=== PATIENT | female | born 1965 | race Caucasian/White ===

== ENCOUNTER 2017-11-20 23:16 | Observation (INO) ==
[2017-11-21] MEDS ORDERED: Naloxone 0.4 MG/ML INJ IVP PRN (04:07)
--- NOTE | 2017-11-21 04:10 | Internal Med History&Physical ---
Date of Encounter: 11/21/17 Time of Encounter: 03:40 Internal Medicine - H&P: HPI Chief complaint: Seizure-like activity Admitted From: Home Plans for Post Hospital Care: Home History of present illness: Ms. Nobles is a 52 year old female Patient presented to the [facility] ER after experiencing a possible seizure. She has a history of seizures, and states she has not been feeling well for about a week. She has been increasingly lethargic, nauseated and concerned that her sugars are going too low. She checks her sugars 3 times a day, states they range anywhere from 100-150. She is not diabetic, and does not take insulin. On the day she presented to the emergency room she had just finished shopping with her daughter when she was on the way home started to feel sick and needed to vomit. They drove to her daughter's apartment, patient vomited. The daughter went up to her apartment to get her sister for assistance, and the patient had gotten out of the vehicle and fallen down into the grass outside of the apartment complex. She was found on her back, nobody witnessed her fall nobody saw whether or not she struck her head during the fall. According to the daughter the patient was "unresponsive" for a few seconds before coming around but was very confused and could not remember who she was nor who her children were. She also had urinated on herself after the episode. Denies tongue biting however. Patient's typical seizure activity includes zoning out for a few seconds but then coming to. She states she has not had a seizure for several months since she was put on Vimpat. EMS was called and found the patient in the grass and she was transported to [facility] for further evaluation. [facility] performed their assessment but requested transfer to [facility] as patient' s neurologist is affiliated here. I currently do not have records of lab work done at their facility as it did not come with the patient when she was transferred here. The ER also did not perform a head CT despite the possibility of the patient hitting her head as their CT scanner is out of service. The patient is not sure if she hit her head or not, but she is currently complaining of pain in the back of her head. Of note, patient is particularly fixated on the fact that her seizure activity is directly tied to her low sugar levels, however when she has had these events she has had a normal blood sugar reading. Patient denies dehydration, nausea. Denies chest pain and abdominal pain. Does have head pain as described above as well as 1 episode of vomiting earlier today. Since the episode at her daughter' s apartment, no further seizure like activity. Past Med Surg Social Fam HX - Past Medical History Medical history: coronary artery disease, hyperlipidemia, renal disease, seizures, other Additional medical history: irregular HR Psychiatric history: no psych history - Past Surgical History Surgical History: cholecystectomy, hysterectomy Additional surgical history: bladder tucks. remove tumors on right hip area. ileac nerve right side. Ureteral opened up right - Social History Smoking Status: Never smoker Smokeless Tobacco Status: No Alcohol use: none Drug use: none Internal Medicine - H&P: Meds Ciprofloxacin HCl [Cipro] 250 mg PO BID #6 tab 09/20/16 [Rx] Phenazopyridine [Pyridium] 100 mg PO TID PRN #9 tablet 09/20/16 [Rx] 3 Allergy/AdvReac Type Severity Reaction Status Date / Time latex Allergy Anaphylaxis Verified 09/20/16 19:36 metronidazole [From Flagyl] Allergy Rash Verified 09/20/16 19:36 nalbuphine [From Nubain] Allergy Anaphylaxis Verified 09/20/16 19:36 orphenadrine [From Norflex] Allergy Anaphylaxis Verified 09/20/16 19:36 Sulfa (Sulfonamide Allergy Hives Verified 09/20/16 19:36 Antibiotics) All Systems PM: A 10-system review of systems was performed and is negative for pertinent findings except as documented above in the HPI. - Constitutional Vitals: Temp Pulse Resp BP Pulse Ox 98.0 F 60 16 136/82 96 11/21/17 02:02 11/21/17 02:02 11/21/17 02:02 11/21/17 02:02 11/21/17 02:02 General appearance: Present: cooperative, A&O X 3, pleasant, no acute distress, answers questions appropriately - Head Head exam: Present: atraumatic, normal inspection Additional comments: Some mild tenderness with palpation over the back of the head and upper neck. - Eye Eye exam: Present: EOMI, normal appearance, PERRL - Neck Neck exam general surgery: Present: full ROM. Absent: tenderness - Respiratory Respiratory exam: Present: CTAB. Absent: chest wall tenderness, respiratory distress, wheezes - Cardiovascular Cardiovascular exam: Present: RRR. Absent: diastolic murmur, systolic murmur - GI/Abdominal GI/Abdominal exam: Present: normal bowel sounds, soft. Absent: tenderness - Extremities Exam Extremities exam: Present: warm, radial pulses palpable and symmetrical. Absent : tenderness - Neurological Exam Neurological exam: Present: no focal deficits, strengths equal and symetr throughout. Absent: motor sensory deficit, facial droop, speech deficit - Skin Skin exam: Present: dry, normal color, warm Internal Med - H&P Results - Labs CBC & Chem 7: 11/21/17 05:17 11/21/17 05:17 - Assessment and plan (1) Seizure-like activity Current Visit: Yes Status: Acute Assessment and plan: Has history of seizures which have been well controlled up until recently. Takes Vimpat. Patient states that these episodes are because she has low blood sugar, despite evidence to the contrary. Consider EEG in the morning Consider neurology consultation. Continue to monitor sugars Continue to monitor for seizure activity. (2) History of seizures Current Visit: Yes Status: Acute Assessment and plan: As above, patient on Vimpat. Continue to monitor. Consider neurology consult. (3) Head pain Current Visit: Yes Status: Acute Assessment and plan: CT head not ordered prior to arrival here. Stat head CT ordered, and shows no acute process. Tylenol for pain as needed. Qualifiers: Headache type: post-traumatic Headache chronicity pattern: acute headache Intractability: not intractable Qualified Code(s): G44.319 - Acute post- traumatic headache, not intractable (4) Unwitnessed fall Current Visit: Yes Status: Acute Assessment and plan: Could be due to a seizure, but unclear etiology. Fell into grass, onto her back. Head CT negative. - Time Spent With Patient Total time spent is greater than 50% in coordination of care (as documented) at patient's floor/unit and/or counseling patient: Greater than 35 minutes
[2017-11-21 06:05] LABS: Alanine Aminotransferase 33 Units/L (7-52); Albumin 4.4 g/dL (3.5-5.7); Alkaline Phosphatase 108 Units/L (34-104); Aspartate Amino Transferase 27 Units/L (13-39); BUN/Creatinine Ratio 26 (6-26); Bilirubin,Total 0.9 mg/dL (0.3-1.0); Blood Urea Nitrogen 15 mg/dL (6-20); Calcium 9.5 mg/dL (8.6-10.3); Carbon Dioxide 24 mEq/L (23-29); Chloride 105 mEq/L (98-107); Globulin 2.2 g/dL (2.4-3.5); Glucose 112 mg/dL (70-105); Osmolality,Calculated 288 (280-300); Potassium 3.8 mEq/L (3.5-5.1); Sodium 138 mEq/L (136-145); Total Protein 6.6 g/dL (6.4-8.9); eGFR For Non-African Americans > 60 (> 60)
[2017-11-21 08:02] LABS: Basophils % 0.3 %; Eosinophils # 0.1 K/mcL (0.0-0.6); Eosinophils % 0.8 %; Hematocrit 42.3 % (35.3-44.9); Hemoglobin 14.1 g/dL (11.5-15.4); Immature Granulocytes % 0.3 % (0-4); Immature Platelets 3.3 % (1.1-6.1); Lymphocytes # 5.1 K/mcL (0.6-4.6); Lymphocytes % 45.8 %; Mean Corpuscular HGB Conc 33.3 g/dL (31.6-35.5); Mean Corpuscular Hemoglobin 30.1 pg (28.0-33.3); Mean Corpuscular Volume 90.2 fL (83.0-100.0); Mean Platelet Volume 9.8 fL (9.4-12.4); Monocytes # 0.7 K/mcL (0.0-1.3); Monocytes % 6.2 %; Neutrophils # 5.2 K/mcL (1.6-8.9); Platelet Count 220 K/mcL (140-400); Red Blood Count 4.69 M/mcL (3.82-4.97); Segmented Neutrophils % 46.6 %
[2017-11-21] MEDS ORDERED: TRULANCE 3 MG PO SCH (10:30)
--- NOTE | 2017-11-21 10:43 | Event Note ---
Date of Encounter: 11/21/17 Time of Encounter: 10:38 S: Patient had no acute events overnight after admission. She has some neck soreness, but no other complaints. Nursing staff reports no seizure activity since admission. She denies fever, chills, chest pain, SOB, nausea, vomiting, or abdominal pain. O: Gen - Awake, alert, oriented x 3, no acute distress HEENT - NCAT, PERRLA, EOMI, hearing grossly intact, oropharynx benign CV - RRR, normal S1 and S2, no M/R/G, no BLE edema Resp - Normal WOB, CTAB, no W/R/R GI - Soft, NT/ND, no masses, normal bowel sounds, no HSP Skin - Warm, dry, no rashes/lesions/ulcers Psych - Normal mood and affect, no depression or anxiety A/P: 1) Seizure-like Activity - Neurology consulted; appreciate input. No further seizure activity. Continue home vimpat. Will await further recommendations from neurology. 2) Seizure Disorder - Management as per above. 3) Neck Pain - Continue tylenol PRN. 4) HTN - Continue home lisinopril. 5) HLD - Continue home lipitor. 6) Prediabetes - Not currently on medication. Blood glucose WNL. Continue to monitor.
[2017-11-21] MEDS: Lisinopril 20 MG TABLET PO SCH (11:15)
[2017-11-21] MEDS: Acetaminophen 325 MG TABLET PO PRN ×2 (11:15→17:18)
[2017-11-21] MEDS: TRULANCE 3 MG PO SCH (11:18)
--- NOTE | 2017-11-21 15:33 | Neurology - Consult Note ---
Date of Encounter: 11/21/17 Time of Encounter: 11:25 Assessment and Plan (1) Seizure-like activity Current Visit: Yes Status: Acute This is likely not a seizure episode and the episode described is more consistent with syncope than seizure. Both her daughter and the patient relate that this was not her typical seizure event and the episode is not associated with tongue biting, motor activity and it was proceeded by vomiting therefore this is more likely syncopal episode. She has been doing really well in the last 8 months while taking vimpat 100mg daily and she was having difficulty tolerating bid dosing so i would not change her antiepileptic therapy. total time spend on this care is approximately 55 minutes (2) Dizziness Current Visit: Yes Status: Acute Patient developed acute onset of dizziness, described as vertiginous feeling after vomiting and so it may be vestibular dysfunction that caused the vomiting and falling. The dizziness is still present and described as vertigo feeling but neurologically, no focal findings and no nystagmus seen. Will be benefit to get an MRI of brain without contrast to assess TELEPHONE ADVICE NURSE pathology. Please also check medical conditions and watch cardiac rhythm BP management etx. History of Present Illness Chief complaint: passed out after throwing up HPI: Ms. Nobles is a 52 year old female with PMH significant for known seizure disorder , renal failure who developed an episode of seizure vs syncope. Patient known to our neurology practice and she recently saw Dr. Eddie Hendricks last month, who kept her on Vimpat 100mg daily. Apparently patient has long history of seizure disorder and she has seen few different neurologists in the last few years. She has seizures since age of 10. Per medical records, however, her seizure type is not known and never been confirmed although it was reported that one EEG done when she was younger was 'abnormal' She has had EEGs done few years ago which was told normal study. She has tried few different seizures medications and she could not tolerate them, or they had caused significant side effects, including topiramate, Tegretal, Depakote. Until she was started on Vimpat 100mg daily since she has been doing better. She was recommended to titrated up to 100mg of vimpat BID but she was unable to tolerate bid dosing therefore she was kept on Vimpat 100mg daily. She has been doing fine with it. This time, yesterday morning, she woke up feeling fine and she ate breakfast with the daughter and after that she felt nauseated and vomited. After vomiting she was walking and simply collapsed on the floor and lost her consciousness. her daughter witnessed the spell and says that there was no shaking activity, no twitching, no tongue biting and no urinary incontinence. She was out for less than one minute but came to with confusion but quickly regained her consciousness. Both patients and her daughter state that this is not her typical seizure. Initial CT of head was done at [facility] and it was reported no acute intracranial abnormality. She was transferred here for further evaluation. Patient still feels somewhat not back to normal although mentally she is wide awake and oriented. She admits pain in her neck and head and shoulder area. No fever though. She then mentioned since yesterday she has been having vertiginous feeling when she lays flat or change body position she feels room spinning. The dizziness is still present and then to be aggravate with head turning movements. Past Med Surg Social Fam HX - Past Medical History Medical history: coronary artery disease, hyperlipidemia, renal disease, seizures, other Additional medical history: irregular HR Psychiatric history: no psych history - Past Surgical History Surgical History: cholecystectomy, hysterectomy Additional surgical history: bladder tucks. remove tumors on right hip area. ileac nerve right side. Ureteral opened up right - Social History Smoking Status: Never smoker Smokeless Tobacco Status: No Alcohol use: none Drug use: none Medications and Allergies Albuterol Sulfate [Proair Hfa] 1 - 2 puff IH Q4H PRN 11/21/17 [History] Atorvastatin [Lipitor] 10 mg PO HS 11/21/17 [History] Calcium Carbonate/Vitamin D3 [Calcium 600-Vit D3 400 Tablet] 1 tab PO BID [History] Lacosamide [Vimpat] 100 mg PO BID 11/21/17 [History] Lisinopril [Zestril] 20 mg PO DAILY 11/21/17 [History] Montelukast [Singulair] 10 mg PO DAILY 11/21/17 [History] Multivit-Min/FA/Lycopen/Lutein [A [employer] Multivit Tab] 1 tab PO DAILY 02/28 [History] Plecanatide [Trulance] 3 mg PO DAILY 11/21/17 [History] Polyethylene Glycol 3350 [MiraLAX Powder Bulk 17.9 Oz] 1 scoop PO DAILY [History] PredniSONE [Deltasone] See Taper PO AD 11/21/17 [History] Tizanidine HCl 4 mg PO TID 11/21/17 [History] 3 Allergy/AdvReac Type Severity Reaction Status Date / Time desloratadine Allergy Hives Verified 11/21/17 08:29 [From Clarinex-D] dicyclomine [From Bentyl] Allergy Hives Verified 11/21/17 08:29 estradiol Allergy See Verified 11/21/17 08:29 Comments fluoxetine [From Prozac] Allergy See Verified 11/21/17 08:29 Comments Hydromorphone [From Dilaudid] Allergy Hallucinati Verified 11/21/17 08:29 ng lamotrigine [From Lamictal] Allergy See Verified 11/21/17 08:29 Comments latex Allergy Anaphylaxis Verified 09/20/16 19:36 lidocaine Allergy Hives Verified 11/21/17 08:29 metronidazole [From Flagyl] Allergy Rash Verified 09/20/16 19:36 nalbuphine [From Nubain] Allergy Anaphylaxis Verified 09/20/16 19:36 orphenadrine [From Norflex] Allergy Anaphylaxis Verified 09/20/16 19:36 pilocarpine Allergy See Verified 11/21/17 08:29 Comments prednisone Allergy Seizure Verified 11/21/17 08:29 pseudoephedrine Allergy Hives Verified 11/21/17 08:29 [From Clarinex-D] simvastatin [From Zocor] Allergy See Verified 11/21/17 08:29 Comments Sulfa (Sulfonamide Allergy Hives Verified 09/20/16 19:36 Antibiotics) tegaserod [From Zelnorm] Allergy Abdominal Verified 11/21/17 08:29 Pain tioconazole Allergy See Verified 11/21/17 08:29 [From Monistat 1 Comments (tioconazole)] topiramate Allergy See Verified 11/21/17 08:29 Comments tramadol [From Ultram] Allergy Difficulty Verified 11/21/17 08:29 Breathing All Systems: The remainder of the systems were reviewed and are negative Physical Examination - Vital Signs Vital Signs: Initial Vital Signs Temp Pulse Resp BP Pulse Ox 98.0 F 60 16 136/82 96 11/21/17 02:02 11/21/17 02:02 11/21/17 02:02 08/11/18 02:02 11/21/17 02:02 - Constitutional General appearance: comfortable - Neurologic Detailed motor examination: full strength in all major muscle groups Motor examination - right side: 55: deltoids, biceps, triceps, wrist flexion, wrist extension, vertical contour band saw operator, hip flexors, tibialis Anterior, quadriceps, toe extension (EHL), plantarflexion Motor examination - left side: 55: deltoids, biceps, triceps, wrist flexion, wrist extension, hip flexors, vertical contour band saw operator, quadriceps, tibialis Anterior, toe extension (EHL), plantarflexion Detailed sensory examination: intact Posture: other (None) Reflex and gait examination: intact Reflexes: Biceps: 1+, Triceps: 1+, Brachioradialis: 1+, Patella: 1+, Achilles: 1 + Mental Status Examination: awake, alert, oriented to person, oriented to place, oriented to time, follows commands appropriately, answers questions appropriately, no agnosia, no aphasia, no aproxia Cranial nerve examination: PERRL, EOMI, visual rodriges intact, corneal reflexes brisk symmetrically, sensory to face intact, mastication intact, no facial asymmetry is present, no dysarthria, hearing is intact symmetrically, soft palate elevates bilaterally upon phonation, gag reflex intact, flexes SCM and trapezius muscles symmetrically with full power, tongue protrudes midline, no atrophy or facial fasiculations present Cerebellar examination: no dysmetria, performs finger to nose and heel to dumas symmetrically without ataxia, no gait ataxia, no truncal ataxia, no difficulty with rapid alternating movements Results - Laboratory Findings CBC and BMP: 11/21/17 05:17 11/21/17 05:17 Abnormal lab findings: Abnormal lab results Lymphocytes # 5.1 K/mcL (0.6-4.6) H 11/21/17 05:17 Creatinine 0.58 mg/dL (0.60-1.20) L 11/21/17 05:17 Glucose 112 mg/dL (70-105) H 11/21/17 05:17 POC Glucose 105 mg/dL (70-99) H 11/21/17 02:08 Alkaline Phosphatase 108 Units/L (34-104) H 11/21/17 05:17 Globulin 2.2 g/dL (2.4-3.5) L 11/21/17 05:17 - Diagnostic Findings Additional findings: CT OF THE HEAD WITHOUT CONTRAST 11/21/2017 5:59 am TECHNIQUE: CT of the head was performed without the administration of intravenous contrast. Dose modulation, iterative reconstruction, and/or weight based adjustment of the mA/kV was utilized to reduce the radiation dose to as low as reasonably achievable. COMPARISON: None. HISTORY: ORDERING SYSTEM PROVIDED HISTORY: Fall, unknown if hit head FINDINGS: BRAIN/VENTRICLES: There is no acute intracranial hemorrhage, mass effect or midline shift. No abnormal extra-axial fluid collection. The cespedes-white differentiation is maintained without evidence of an acute infarct. There is no evidence of hydrocephalus. ORBITS: The visualized portion of the orbits demonstrate no acute abnormality. SINUSES: The visualized paranasal sinuses and mastoid air cells demonstrate no acute abnormality. SOFT TISSUES/SKULL: No acute abnormality of the visualized skull or soft tissues. CT/CT head/brain wo con IMPRESSION: No acute intracranial abnormality. D/ / Eddie Granado MD / Eddie Granado MD Interpreting Provider: Eddie Granado MD Consult Discharge Plan - Plan Referrals: Ximena Varghese CNP [Primary Care Provider] -
[2017-11-21] MEDS ORDERED: Ondansetron 4 MG/2 ML VIAL IVP STA (17:51)
[2017-11-21] MEDS ORDERED: Ondansetron 4 MG/2 ML VIAL IVP PRN (17:51)
[2017-11-21 19:15] LABS: Bilirubin,Urine Negative (Negative); Blood,Urine Negative (Negative); Clarity,Urine Clear (Clear); Color,Urine Yellow (Yellow); Glucose,Urine (UA) Normal (Normal); Ketones,Urine Negative (Negative); Leukocyte Esterase,Urine Negative (Negative); Nitrite,Urine Negative (Negative); PH,Urine 6.5 pH Units (5.0-8.0); Protein,Urine Negative (Neg-Trace); Specific Gravity,Urine 1.011 (1.010-1.025); Urobilinogen,Urine Normal (Normal)
[2017-11-22 05:02] LABS: Basophils % 0.4 %; Eosinophils # 0.1 K/mcL (0.0-0.6); Eosinophils % 1.3 %; Hematocrit 41.5 % (35.3-44.9); Hemoglobin 13.5 g/dL (11.5-15.4); Immature Granulocytes % 0.3 % (0-4); Lymphocytes # 5.8 K/mcL (0.6-4.6); Lymphocytes % 53.5 %; Mean Corpuscular HGB Conc 32.5 g/dL (31.6-35.5); Mean Corpuscular Hemoglobin 29.4 pg (28.0-33.3); Mean Corpuscular Volume 90.4 fL (83.0-100.0); Mean Platelet Volume 9.6 fL (9.4-12.4); Monocytes # 0.7 K/mcL (0.0-1.3); Monocytes % 6.6 %; Neutrophils # 4.1 K/mcL (1.6-8.9); Platelet Count 203 K/mcL (140-400); Red Blood Count 4.59 M/mcL (3.82-4.97); Red Cell Distribution Width 14.2 % (11.5-14.5); Segmented Neutrophils % 37.9 %
[2017-11-22 05:16] LABS: BUN/Creatinine Ratio 24 (6-26); Blood Urea Nitrogen 20 mg/dL (6-20); Calcium 9.5 mg/dL (8.6-10.3); Carbon Dioxide 30 mEq/L (23-29); Chloride 103 mEq/L (98-107); Glucose 98 mg/dL (70-105); Osmolality,Calculated 297 (280-300); Potassium 4.1 mEq/L (3.5-5.1); Sodium 142 mEq/L (136-145); eGFR For Non-African Americans > 60 (> 60)
[2017-11-22] MEDS ORDERED: Perflutren Lipid Microsphere 1.3 ML in 0.9 % Sodium Chloride 8.7 ML IVP ONE (08:49)
[2017-11-22] MEDS: TRULANCE 3 MG PO SCH (09:14)
[2017-11-22] MEDS: Lisinopril 20 MG TABLET PO SCH (09:23)
--- NOTE | 2017-11-22 09:46 | Neurology Progress Note ---
Date of Encounter: 11/22/17 Time of Encounter: 09:44 Assessment and Plan (1) Seizure-like activity Current Visit: Yes Status: Acute This is likely not a seizure episode and the episode described is more consistent with syncope than seizure. Both her daughter and the patient relate that this was not her typical seizure event and the episode is not associated with tongue biting, motor activity and it was proceeded by vomiting therefore this is more likely syncopal episode. She has been doing really well in the last 8 months while taking vimpat 100mg daily and she was having difficulty tolerating bid dosing so i would not change her antiepileptic therapy. total time spend on this care is approximately 55 minutes (2) Dizziness Current Visit: Yes Status: Acute Still having vertiginous feeling usually when lying flat but no longer associated with nausea. No nystagmus on exam. Symptoms suggest possible BPPV but due to lack of otological symptoms would suggest work up for central etiology. Ordered MRI of brain, MRA of brain, carotid artery duplex. Please continue medical and supportive care Subjective Principal diagnosis: Dizziess and syncope Interval history: Patient seen and examined. She feels 'sore' a diffuse type of muscle pain at the neck and shoulder. She still feels dizzy usually occurring when lying flat and when she sits up she is fine. She no longer feels nauseated. No tinnitus, no hearing difficulty. Objective - Constitutional Vitals: Temp Pulse Resp BP Pulse Ox 97.9 F 59 15 95/63 93 11/22/17 06:39 11/22/17 06:39 11/22/17 06:39 11/22/17 06:39 11/22/17 06:39 - Neurological Exam Sensorimotor examination: Present: intact Motor Examination: Present: full strength in all major muscle groups Motor examination - right side: 5/5: deltoids, biceps, triceps, wrist flexion, wrist extension, outpatient surgery rn, hip flexors, tibialis Anterior, quadriceps, toe extension (EHL), plantarflexion Motor examination - left side: 5/5: deltoids, biceps, triceps, wrist flexion, wrist extension, hip flexors, outpatient surgery rn, quadriceps, tibialis Anterior, toe extension (EHL), plantarflexion Sensation intact: Present: intact Posture: Present: other (None) Reflex and gait examination: other (Gait not tested) Reflexes: Biceps: 2+, Triceps: 2+, Brachioradialis: 2+, Patella: 2+, Achilles: 2 + Mental Status Examination: Present: awake, alert, oriented to person, oriented to place, oriented to time, follows commands appropriately, answers questions appropriately, no agnosia, no aphasia, no aproxia Cranial nerve examination: Present: PERRL, EOMI, visual rodriges intact, corneal reflexes brisk symmetrically, sensory to face intact, mastication intact, no facial asymmetry is present, no dysarthria, hearing is intact symmetrically, soft palate elevates bilaterally upon phonation, gag reflex intact, flexes SCM and trapezius muscles symmetrically with full power, tongue protrudes midline, no atrophy or facial fasiculations present Cerebellar examination: Present: no dysmetria, performs finger to nose and heel to dumas symmetrically without ataxia, no gait ataxia, no truncal ataxia, no difficulty with rapid alternating movements - VTE Documentation of Mechanical Device: Intermittent pneumatic compression device Results - Laboratory Findings CBC and BMP: 11/22/17 04:06 11/22/17 04:06 Abnormal lab findings: Abnormal lab results Lymphocytes # 5.8 K/mcL (0.6-4.6) H 11/22/17 04:06 Carbon Dioxide 30 mEq/L (23-29) H 11/22/17 04:06 POC Glucose 105 mg/dL (70-99) H 11/21/17 02:08 Alkaline Phosphatase 108 Units/L (34-104) H 11/21/17 05:17 Globulin 2.2 g/dL (2.4-3.5) L 11/21/17 05:17 Consult Discharge Plan - Plan Referrals: Ximena Varghese, GLOBAL ACCOUNT DIRECTOR [Primary Care Provider] -
[2017-11-22] MEDS ORDERED: Albuterol 2.5 MG/3 ML NEBULIZER IH PRN (11:32)
--- NOTE | 2017-11-22 11:34 | Internal Med Progress Note ---
Hospitalist Progress Note - Encounter Date of Encounter: 11/22/17 Time of Encounter: 11:30 - Subjective Interval History: Patient had no acute events overnight. She states that head and neck pain are resolved. She still feels "shaky." She denies fever, chills, chest pain, SOB, nausea, vomiting, abdominal pain, or seizures. She has some mild diarrhea. She has no other complaints at this time. - Exam Vitals: Temp Pulse Resp BP Pulse Ox 97.9 F 59 15 95/63 93 11/22/17 06:39 11/22/17 06:39 11/22/17 06:39 11/22/17 06:39 11/22/17 06:39 Exam: Gen - Awake, alert, oriented x 3, no acute distress HEENT - NCAT, PERRLA, EOMI, hearing grossly intact, oropharynx benign CV - RRR, normal S1 and S2, no M/R/G, no BLE edema Resp - Normal WOB, CTAB, no W/R/R GI - Soft, NT/ND, no masses, normal bowel sounds, no HSP Skin - Warm, dry, no rashes/lesions/ulcers Psych - Normal mood and affect, no depression or anxiety - Assessment and Plan (1) Seizure-like activity Current Visit: Yes Status: Acute Assessment and Plan: Neurology consulted; appreciate input. Not convinced that this was a seizure. Headache improved, but still with dizziness. Continue home vimpat. ECHO completed; read pending. MRI/MRA brain and carotid duplex pending. Continue telemetry. (2) History of seizures Current Visit: Yes Status: Chronic Assessment and Plan: Management as per above. (3) Head pain Current Visit: Yes Status: Acute Assessment and Plan: Resolved. Continue to monitor. Tylenol, naproxen, and tizandine PRN pain. (4) HTN (hypertension) Current Visit: Yes Status: Chronic Assessment and Plan: Continue home medications. (5) HLD (hyperlipidemia) Current Visit: Yes Status: Chronic Assessment and Plan: Continue home medications. (6) Prediabetes Current Visit: Yes Status: Chronic Assessment and Plan: Blood glucose WNL. Not on medications. Continue to monitor. (7) DVT prophylaxis Current Visit: Yes Status: Acute Assessment and Plan: Continue SCDs and start lovenox 40 mg SQ QD. - Time Spent with Patient Total time spent is greater than 50% in coordination of care (as documented) at patient's floor/unit and/or counseling patient: less than 15 minutes Plan of Care Discussed with: patient (Nurse) Internal Medicine: Result - Labs CBC & Chem 7: 11/22/17 04:06 11/22/17 04:06 Labs: Short CBC 11/22/17 Range/Units 04:06 WBC 10.8 (4.3-11.1) K/mcL Hgb 13.5 (11.5-15.4) g/dL Hct 41.5 (35.3-44.9) % Plt Count 203 (140-400) K/mcL Neutrophils # 4.1 (1.6-8.9) K/mcL BMP 11/22/17 04:06 Sodium 142 Potassium 4.1 Chloride 103 Carbon Dioxide 30 H BUN 20 Creatinine 0.82 Glucose 98 Calcium 9.5 Urine 11/21/17 Range/Units Unknown Urine Color Yellow (Yellow) Urine Clarity Clear (Clear) Urine pH 6.5 (5.0-8.0) pH Units Ur Specific [place] 1.011 (1.010-1.025) Urine Protein Negative (Neg-Trace) mg/dL Urine Glucose (UA) Normal (Normal) mg/dL - VTE Documentation of Mechanical Device: Intermittent pneumatic compression device Consult Discharge Plan - Plan Referrals: Ximena Varghese, BINDING DYER [Primary Care Provider] - (3) Head pain Qualifiers: Headache type: post-traumatic Headache chronicity pattern: acute headache Intractability: not intractable Qualified Code(s): G44.319 - Acute post- traumatic headache, not intractable (4) HTN (hypertension) Qualifiers: Hypertension type: essential hypertension Qualified Code(s): I10 - Essential (primary) hypertension (5) HLD (hyperlipidemia) Qualifiers: Hyperlipidemia type: mixed hyperlipidemia Qualified Code(s): E78.2 - Mixed hyperlipidemia
[2017-11-22] MEDS ORDERED: (Plecanatide [Trulance] 3 MG) PO SCH (11:45)
[2017-11-22] MEDS: *HR* Enoxaparin 40 MG/0.4 ML SYRINGE SQ SCH (12:24)
[2017-11-22] MEDS: Multivit/Ca/Min/Fe/FA 1 TAB TABLET PO SCH (12:25)
[2017-11-22] MEDS: tiZANidine 4 MG TABLET PO SCH ×2 (13:32→22:04)
[2017-11-23 04:21] LABS: Basophils % 0.3 %; Eosinophils # 0.2 K/mcL (0.0-0.6); Eosinophils % 1.7 %; Hematocrit 41.1 % (35.3-44.9); Hemoglobin 13.3 g/dL (11.5-15.4); Immature Granulocytes % 0.3 % (0-4); Lymphocytes # 5.4 K/mcL (0.6-4.6); Lymphocytes % 46.5 %; Mean Corpuscular HGB Conc 32.4 g/dL (31.6-35.5); Mean Corpuscular Hemoglobin 29.8 pg (28.0-33.3); Mean Corpuscular Volume 91.9 fL (83.0-100.0); Mean Platelet Volume 9.8 fL (9.4-12.4); Monocytes # 0.7 K/mcL (0.0-1.3); Neutrophils # 5.3 K/mcL (1.6-8.9); Platelet Count 204 K/mcL (140-400); Red Blood Count 4.47 M/mcL (3.82-4.97); Red Cell Distribution Width 13.8 % (11.5-14.5); Segmented Neutrophils % 45.2 %
[2017-11-23 04:40] LABS: BUN/Creatinine Ratio 30 (6-26); Blood Urea Nitrogen 25 mg/dL (6-20); Calcium 9.4 mg/dL (8.6-10.3); Carbon Dioxide 26 mEq/L (23-29); Chloride 106 mEq/L (98-107); Glucose 105 mg/dL (70-105); Osmolality,Calculated 293 (280-300); Potassium 4.5 mEq/L (3.5-5.1); Sodium 139 mEq/L (136-145); eGFR For Non-African Americans > 60 (> 60)
[2017-11-23] MEDS: *HR* Enoxaparin 40 MG/0.4 ML SYRINGE SQ SCH (05:40)
[2017-11-23] MEDS ORDERED: Cholecalciferol (D-3) 1,000 UNIT TABLET PO SCH (09:00)
[2017-11-23] MEDS: Lisinopril 20 MG TABLET PO SCH (09:53)
[2017-11-23] MEDS: tiZANidine 4 MG TABLET PO SCH ×2 (09:53→16:38)
[2017-11-23] MEDS: TRULANCE 3 MG PO SCH (09:54)
[2017-11-23] MEDS: Multivit/Ca/Min/Fe/FA 1 TAB TABLET PO SCH (09:55)
[2017-11-23 12:01] VITALS: BP 140/70
--- NOTE | 2017-11-23 15:15 | Neurology Progress Note ---
Date of Encounter: 11/23/17 Time of Encounter: 15:13 Assessment and Plan (1) Seizure-like activity Current Visit: Yes Status: Acute This is likely not a seizure episode and the episode described is more consistent with syncope than seizure. Both her daughter and the patient relate that this was not her typical seizure event and the episode is not associated with tongue biting, motor activity and it was proceeded by vomiting therefore this is more likely syncopal episode. She has been doing really well in the last 8 months while taking vimpat 100mg daily and she was having difficulty tolerating bid dosing so i would not change her antiepileptic therapy. (2) Dizziness Current Visit: Yes Status: Acute Patient's symptoms have resolved. MRI of brain showed normal study. Dizziness likely related to fluctuating BP and TIA work up already completed and returned unremarkable. Will sign of at this time. Patient to follow up with Dr. Eddie Hendricks for her seizure disorder, appointment already in place Subjective Principal diagnosis: Dizziess and syncope Interval history: Patient seen and examined. She feels much better today while lying in bed only thing is that when she gets up she still dizzy. The headaches, neck pain resolved. MRI of brain showed no acute intracranial abnormality, so as MRI of brain and carotid artery duplex study. Echocardigoraphy also returned unremarkable. Objective - Constitutional Vitals: Temp Pulse Resp BP Pulse Ox 99.8 F H 79 14 140/70 95 11/23/17 11:58 11/23/17 11:58 11/23/17 11:58 11/23/17 11:58 11/23/17 11:58 - Neurological Exam Sensorimotor examination: Present: intact Motor Examination: Present: full strength in all major muscle groups Motor examination - left side: 5/5: deltoids, biceps, triceps, wrist flexion, wrist extension, hip flexors, shipping and receiving supervisor, quadriceps, tibialis Anterior, toe extension (EHL), plantarflexion Sensation intact: Present: intact Posture: Present: other (None) Reflex and gait examination: other (Gait not tested) Mental Status Examination: Present: awake, alert, oriented to person, oriented to place, oriented to time, follows commands appropriately, answers questions appropriately, no agnosia, no aphasia, no aproxia Cranial nerve examination: Present: PERRL, EOMI, visual rodriges intact, corneal reflexes brisk symmetrically, sensory to face intact, mastication intact, no facial asymmetry is present, no dysarthria, hearing is intact symmetrically, soft palate elevates bilaterally upon phonation, gag reflex intact, flexes SCM and trapezius muscles symmetrically with full power, tongue protrudes midline, no atrophy or facial fasiculations present Cerebellar examination: Present: no dysmetria, performs finger to nose and heel to dumas symmetrically without ataxia, no gait ataxia, no truncal ataxia, no difficulty with rapid alternating movements - VTE Documentation of Mechanical Device: Intermittent pneumatic compression device Results - Laboratory Findings CBC and BMP: 11/23/17 03:26 11/23/17 03:26 Abnormal lab findings: Abnormal lab results WBC 11.6 K/mcL (4.3-11.1) H 11/23/17 03:26 Lymphocytes # 5.4 K/mcL (0.6-4.6) H 11/23/17 03:26 BUN 25 mg/dL (6-20) H 11/23/17 03:26 BUN/Creatinine Ratio 30 (6-26) H 11/23/17 03:26 POC Glucose 105 mg/dL (70-99) H 11/21/17 02:08 Alkaline Phosphatase 108 Units/L (34-104) H 11/21/17 05:17 Globulin 2.2 g/dL (2.4-3.5) L 11/21/17 05:17 - Diagnostic Findings Additional findings: Order Number: [id number] Procedure Date: 11/22/2017 Date: 1965 Age: 52 yrs Gender: Female Lt BP: 95 / 63 mmHg Rt.BP: 95 / 63 mmHg Heart Rate: Location: [facility] Room #: 2NE21 Marketing Analytics Manager: Deandra Lagunas, TALHACS , RVT Referring MD: Lázaro Hunter MD Reading MD: Tirso Paredes MD Primary Indications: Syncope Risk Factors Yes/No Hypertension Hypercholesterolemia Diabetes Impressions: The bilateral carotid arteries have minimal plaque throughout. Findings Carotid Duplex: Right: There is nonstenotic plaque in the right distal common carotid artery. There is smooth heterogeneous plaque. There is nonstenotic plaque in the right bifurcation. There is smooth heterogeneous plaque. Left: There is nonstenotic plaque in the left bifurcation. There is smooth heterogeneous plaque. There is nonstenotic plaque in the left proximal internal carotid artery. There is smooth heterogeneous plaque. Prior Study: No prior study available for comparison. Carotid Results Right PSV EDV Assessment Proximal CCA 98 24 Normal Mid CCA 91 19 Normal Distal CCA 80 22 Non Stenotic Plaque Bifurcation 86 21 Non Stenotic Plaque Proximal ICA 77 27 Normal Mid ICA 88 30 Normal Distal ICA 76 31 Normal ECA 73 12 Normal Vertebral Artery 39 12 Antegrade Flow Left PSV EDV Assessment Proximal CCA 119 23 Normal Mid CCA 94 23 Normal Distal CCA 91 25 Normal Bifurcation 90 27 Non Stenotic Plaque Proximal ICA 75 19 Non Stenotic Plaque Mid ICA 80 31 Normal Distal ICA 73 30 Non Stenotic Plaque ECA 59 12 Normal Vertebral Artery 43 12 Antegrade Flow Ratio's Right ICA/CCA Ratio: 0.97 ICA/CCA Values: 88/91 Left ICA/CCA Ratio: 0.85 ICA/CCA Values: 80/94 Updated by Tirso Paredes MD on 11/22/2017 2:03:07 PM electronically signed on 11/22/2017 2:04:02 PM with status of Final EV/EV echocardiogram w enhance Impressions: LVEF 60-65%. Normal LV chamber size, wall thickness and function. Mild left ventricular diastolic dysfunction. Normal right ventricular structure and function. No evidence of pulmonary hypertension. No significant valvular dysfunction. MRI OF THE BRAIN WITHOUT CONTRAST 11/23/2017 9:03 am TECHNIQUE: Multiplanar multisequence MRI of the brain was performed without the administration of intravenous contrast. COMPARISON: CT brain 11/21/2017 HISTORY: ORDERING SYSTEM PROVIDED HISTORY: CVA Syncopal episode 1 day prior, possible head injury. Initial presentation. FINDINGS: INTRACRANIAL STRUCTURES/VENTRICLES: There are no areas of restricted diffusion identified to suggest an acute infarct. There is no acute intracranial hemorrhage. No mass effect or midline shift is present. The brain is of normal signal intensities. There is no ventriculomegaly or abnormal extra-axial fluid collection present. There is no sellar or suprasellar mass present. The proximal portions of the [place] demonstrate normal flow voids. ORBITS: Limited evaluation of the orbits is unremarkable. SINUSES: The paranasal sinuses and mastoid air cells are clear. BONES/SOFT TISSUES: Bone marrow signal intensity is normal. MR/MR head/brain wo con IMPRESSION: Normal MRI of the brain. D/ / Prasanth Smith MD / Prasanth Smith MD Interpreting Provider: Prasanth Smith MD OF THE HEAD WITHOUT CONTRAST 11/23/2017 9:03 am TECHNIQUE: MRA of the head was performed utilizing [id number] imaging with MIP images. No intravenous contrast was administered. COMPARISON: None HISTORY: ORDERING SYSTEM PROVIDED HISTORY: CVA Syncopal episode 1 day prior, fall, possible head injury. Insert initial FINDINGS: ANTERIOR CIRCULATION: The intracranial segments of the internal carotid arteries are normal. There is no significant stenosis or aneurysm identified. The anterior and middle cerebral arteries are normal in appearance. No significant stenosis or aneurysm is identified. POSTERIOR CIRCULATION: The distal vertebral arteries are normal in appearance. The basilar artery is normal. No significant stenosis or aneurysm is identified. The posterior cerebral arteries are normal in appearance. MR/MR angio head wo con IMPRESSION: Normal MR angiogram of the brain. Consult Discharge Plan - Plan Referrals: Ximena Varghese CNP [Primary Care Provider] - 12/01/17 2:00 pm
--- NOTE | 2017-11-23 16:47 | Discharge Summary ---
- NOTES TO OUTPATIENT PROVIDER Notes to Outpatient Provider: Follow up with PCP in 2-3 days after discharge. Recheck BMP and CBC at that time. Check blood pressure at that time and adjust anti-hypertensives as necessary. Follow up with neurologist as scheduled. Date of Encounter: 11/23/17 Time of Encounter: 16:45 - Discharge Diagnosis (1) Seizure-like activity Priority: Primary Status: Ruled-out (2) History of seizures Priority: Secondary Status: Chronic (3) Head pain Priority: Secondary Status: Resolved Qualifiers: Headache type: post-traumatic Headache chronicity pattern: acute headache Intractability: not intractable Qualified Code(s): G44.319 - Acute post- traumatic headache, not intractable (4) HTN (hypertension) Priority: Secondary Status: Chronic Qualifiers: Hypertension type: essential hypertension Qualified Code(s): I10 - Essential (primary) hypertension (5) HLD (hyperlipidemia) Priority: Secondary Status: Chronic Qualifiers: Hyperlipidemia type: mixed hyperlipidemia Qualified Code(s): E78.2 - Mixed hyperlipidemia (6) Prediabetes Priority: Secondary Status: Chronic (7) DVT prophylaxis Priority: Secondary Status: Acute Hospital course: Ms. Nobles is a 52 year old female admitted for seizure-like activity vs syncope. She was admitted to general medical floor with telemetry. Neurology was consulted. They did not think this was a seizure. They continued home vimpat. They agreed with syncope workup. MRI/MRA brain was unremarkable. Carotid duplex showed only minimal plaque throughout. ECHO showed LVEF 60-65%, normal LV size and function, mild LV diastolic dysfunction, normal RV structure and function, no pulmonary hypertension, and no valvular abnormalities. Syncope was probably secondary to BP fluctuation. She is back to her baseline today. Home lisinopril will be held at discharge. She will follow up with PCP in 2-3 days after discharge. Repeat BMP and CBC at that time. Recheck blood pressure at that time and adjust anti-hypertensives as necessary. She will keep follow up with her outpatient neurologist as scheduled. Patient has met maximum benefit of this hospitalization and will be discharged home in stable condition. Discharge discussed with: patient, family, nurse - Time Spent with Patient Total time spent providing and/or coordinating discharge services: Less than 30 minutes - Discharge Medications Home Medications: Albuterol Sulfate [Proair Hfa] 1 - 2 puff IH Q4H PRN 11/21/17 [History] Atorvastatin [Lipitor] 10 mg PO HS 11/21/17 [History] Calcium Carbonate/Vitamin D3 [Calcium 600-Vit D3 400 Tablet] 1 tab PO BID [History] Lacosamide [Vimpat] 100 mg PO BID 11/21/17 [History] Montelukast [Singulair] 10 mg PO DAILY 11/21/17 [History] Multivit-Min/FA/Lycopen/Lutein [A Thru Z Select Multivit Tab] 1 tab PO DAILY 02/28 [History] Plecanatide [Trulance] 3 mg PO DAILY 11/21/17 [History] Polyethylene Glycol 3350 [MiraLAX Powder Bulk 17.9 Oz] 1 scoop PO DAILY [History] PredniSONE [Deltasone] See Taper PO AD 11/21/17 [History] Tizanidine HCl 4 mg PO TID 11/21/17 [History] Allergies/Adverse Reactions: 3 Allergy/AdvReac Type Severity Reaction Status Date / Time desloratadine Allergy Hives Verified 11/21/17 08:29 [From Clarinex-D] dicyclomine [From Bentyl] Allergy Hives Verified 11/21/17 08:29 estradiol Allergy See Verified 11/21/17 08:29 Comments fluoxetine [From Prozac] Allergy See Verified 11/21/17 08:29 Comments Hydromorphone [From Dilaudid] Allergy Hallucinati Verified 11/21/17 08:29 ng lamotrigine [From Lamictal] Allergy See Verified 11/21/17 08:29 Comments latex Allergy Anaphylaxis Verified 09/20/16 19:36 lidocaine Allergy Hives Verified 11/21/17 08:29 metronidazole [From Flagyl] Allergy Rash Verified 09/20/16 19:36 nalbuphine [From Nubain] Allergy Anaphylaxis Verified 09/20/16 19:36 orphenadrine [From Norflex] Allergy Anaphylaxis Verified 09/20/16 19:36 pilocarpine Allergy See Verified 11/21/17 08:29 Comments prednisone Allergy Seizure Verified 11/21/17 08:29 pseudoephedrine Allergy Hives Verified 11/21/17 08:29 [From Clarinex-D] simvastatin [From Zocor] Allergy See Verified 11/21/17 08:29 Comments Sulfa (Sulfonamide Allergy Hives Verified 09/20/16 19:36 Antibiotics) tegaserod [From Zelnorm] Allergy Abdominal Verified 11/21/17 08:29 Pain tioconazole Allergy See Verified 11/21/17 08:29 [From Monistat 1 Comments (tioconazole)] topiramate Allergy See Verified 11/21/17 08:29 Comments tramadol [From Ultram] Allergy Difficulty Verified 11/21/17 08:29 Breathing Date of admission: 11/21/17 01:21 Primary care physician: Ximena Varghese CNP Consults: 11/21/17 09:49 Consult for Pharmacy Education [CONS] Stat Reason for Consult: Please verify home medications. Notify MD when this is completed. Thanks. Call Completed: No 11/21/17 09:50 Consult to Neurology [CONS] Routine Consulting Provider: Neurology [facility] Reason for Consult: Seizure Disorder Call Completed: Yes Discharging clinician: Lázaro Hunter Anticipated date of discharge: 11/23/17 - Constitutional Vitals: Temp Pulse Resp BP Pulse Ox 99.8 F H 79 14 140/70 95 11/23/17 11:58 11/23/17 11:58 11/23/17 11:58 11/23/17 11:58 11/23/17 11:58 General appearance: Present: cooperative, A&O X 3, pleasant, no acute distress, answers questions appropriately Exam: See below. - Respiratory Respiratory exam: Present: CTAB. Absent: accessory muscle use, rales, rhonchi, wheezes Additional comments: Normal WOB - Cardiovascular Cardiovascular exam: Present: RRR, +S1, +S2. Absent: diastolic murmur, gallop, rubs, systolic murmur Additional comments: No BLE edema - GI/Abdominal GI/Abdominal exam: Present: normal bowel sounds, soft. Absent: distended, hepatomegaly, mass, splenomegaly, tenderness - Psychiatric Psychiatric exam: Present: normal affect, normal mood. Absent: agitated, anxious, depressed - Skin Skin exam: Present: dry, intact, warm. Absent: cyanosis, rash - Patient Status Disposition: Home, Self-Care Condition: Good Functional capacity at discharge: independent ambulation Overall status at discharge: patient is back to baseline - Discharge Instructions Follow Up With: Ximena Varghese CNP [Primary Care Provider] - 12/01/17 2:00 pm Additional Instructions: Follow up with PCP in 2-3 days after discharge. Recheck BMP and CBC at that time. Check blood pressure at that time and adjust anti-hypertensives as necessary. Follow up with neurologist as scheduled. - Diet and Activity Activity: resume usual activities as tolerated Diet: low fat, low cholesterol, low salt diet, other (Cardiac Diet)
== END 2017-11-23 17:33 | disposition home or self-care (01) ==
LOC: 2NENU
PROVIDERS: ADMIT Family Medicine; ATTEND Family Medicine